=== PATIENT | female | born 1990 | race Caucasian/White ===

== ENCOUNTER 2018-11-30 10:41 | Emergency (ER) | payer SELFPAY ==
[2018-11-30 10:42] VITALS: BP 108/78; PULSE 84; RESP 16; TEMP 36.8; O2SAT 100; BMI 26.6
[2018-11-30] MEDS: Ketorolac 30 MG/ML Syringe IV (11:14)
[2018-11-30] MEDS: Ondansetron 4 MG/2 ML Vial IV (11:14)
[2018-11-30] MEDS: 0.9% Normal Saline 1,000 ML 1000 ML IV (11:14)
[2018-11-30 11:22] LABS: Absolute Lymphocyte Count 1.67 X10^3/uL (0.83-4.51); Absolute Neutrophil Count 5.5 X10^3/uL (2.0-7.7); Basophil# 0.06 X10^3/uL; Basophil% 0.7 % (0-1); Eosinophil# 0.12 X10^3/uL; Eosinophils% 1.4 % (0-5); Hematocrit 40.3 % (37-47); Hemoglobin 13.3 g/dL (12.0-15.0); Lymphocyte # 1.67 X10^3/ul (4.0); Mean Corpuscular Hgb 27.8 pg (27.0-32.0); Mean Corpuscular Volume 84.1 fL (81-99); Monocyte# 1.02 X10^3/uL; Monocyte% 12.2 % (0-10); NRBC Flagged by Analyzer 0 % (0-5); Neutrophil # 5.45 X10^3/uL (2.7-7.7); Neutrophil % 65.5 % (47-70); Platelet Count 187 K/mm3 (150-450); RBC Distribution Width CV 13.2 % (11.6-14.6); Red Blood Count 4.79 M/mm3 (4.2-5.4); White Blood Count 8.3 K/mm3 (4.4-11.0)
[2018-11-30 11:33] LABS: ALB/GLOB Ratio 0.8 RATIO (0.9-2.4); AST(SGOT) 23 U/L (15-37); Alanine Aminotransfer ALT/SGPT 62 U/L (13-56); Albumin, Serum 3.5 g/dL (3.2-5.0); Alkaline Phosphatase 117 U/L (45-117); Anion Gap 6 (5-15); BUN 8 mg/dL (7-18); BUN/Creat Ratio 12.4 RATIO (10-20); Calcium,Total 9.3 mg/dL (8.5-10.1); Chloride 106 mmol/L (98-107); Creatinine, Serum 0.65 mg/dL (0.55-1.02); EST Glomerular Filtration Rate 115 mL/min (>60); Est Glom Filt Rate - Afr Amer 139 mL/min (>60); Estimated Creatinine Clearance 114.91 ml/min; Globulin 4.3 g/dL (2.2-4.2); Glucose 90 mg/dL (74-106); Lipase 80 U/L (73-393); Potassium 3.7 mmol/L (3.5-5.1); Protein, Total 7.8 g/dL (6.4-8.2); Sodium Level 138 mmol/L (136-145)
[2018-11-30 11:59] LABS: Mucous, Urine 0 SEEN /hpf (<or=2+)
[2018-11-30 12:01] LABS: Color, Urine Yellow (Yellow); Glucose, Dipstick Normal (Normal); Ketone-Dipstick Negative (Negative); Leukocyte Esterase-Dipstick 500 /ul (Negative); Nitrite-Dipstick Positive (Negative); Occult Blood-Urine 50 /ul (Negative); Protein-Dipstick 30 mg/dl (Negative); Urine Bilirubin Dipstick Negative (Negative); Urine Clarity Sl. Cloudy (Clear); Urine Urobilinogen Normal (Normal)
[2018-11-30 12:04] LABS: Internal QC Validated? YES +Cl - CLEAR BKGD; Pregnancy, Urine Negative Negative
[2018-11-30 12:10] LABS: Bacteria 1+ /hpf (None Seen); Red Blood Cells-Urine 0-5 SEEN /hpf (0-5); Squamous Epithelial Cells - UA 0-5 SEEN /hpf (5-10); White Blood Cells 25-50 SEEN /hpf (0-5)
--- NOTE | 2018-11-30 12:21 | ED.VISSUMM ---
- ER Visit Summary Date of Service: 11/30/18 Chief Complaint: Flank pain History of Present Illness: The patient is a 28 F with left flank pain for 3 days. Associated with fever, sweats, urinary frequency. History of similar symptoms with kidney infection. Physical Examination: Left flank tender to palpation. Otherwise exam unremarkable. Afebrile and vitals normal. Test Results: CBC normal. CMP showed an ALT of 62. Lipase normal. negative. Urinalysis shows signs of infection without bleeding. Culture pending. Emergency Department Course and Treatment: Patient has signs, symptoms, exam findings, and test results consistent with pyelonephritis. Will treat with Keflex. Cultures pending. Patient was advised that outpatient treatment can fail. She should return with any complications right away. Treatment Plan: Keflex Disposition: Discharge Impression: 1. Left acute pyelonephritis This note was generated with [employer] dictation software. It may contain incorrect words, spelling, and punctuation that were not noted in review of the chart prior to signing ED Disposition - Plan for ED Patient: Referrals: Care Physician,No Primary [Primary Care Provider] -
--- NOTE | 2018-11-30 12:23 | ED.DEP ---
ED Disposition - Plan for ED Patient: Instructions: PYELONEPHRITIS, Female (Adult) Prescriptions: Cephalexin [Keflex] 500 mg PO Q6 #56 cap Prescription Printed Ondansetron [Zofran Odt] 4 mg PO Q8H PRN PRN #10 tab PRN Reason: Nausea Prescription Printed Referrals: Monica Tong [NON-STAFF] -
[2018-11-30 12:38] VITALS: BP 120/74; PULSE 78; RESP 16; O2SAT 99
[2018-11-30] MEDS: Cephalexin 250 MG Capsule 500 MG PO (12:38)
== END 2018-11-30 12:40 | disposition home or self-care (01) ==
LOC: ED 11:27
PROVIDERS: Emergency Provider Emergency Medicine
DX: N10 Acute pyelonephritis (principal)
CPT/HCPCS: 80053; 81001; 81025; 83690; 85025; 87077; 87086; 87088; 87186; 96361; 96374; 96375; 99284; J7030; J2405

== ENCOUNTER 2019-03-17 10:35 | Emergency (ER) | payer SELFPAY ==
[2019-03-17 10:36] VITALS: BP 131/85; PULSE 87; RESP 16; TEMP 36.9; O2SAT 98; BMI 28.3
[2019-03-17 10:42] VITALS: BP 131/85; PULSE 87; RESP 16; TEMP 36.9; O2SAT 98
--- NOTE | 2019-03-17 10:57 | ED.DCSUM_ITS ---
- ER Visit Summary Date of Service: 03/17/19 Chief Complaint: Right lower jaw dental pain and swelling. History of Present Illness: The patient is a 28 F past medical history of gastritis and upper dentures. Currently patient has no dentist. She said for about a week she has had discomfort in her right lower jaw and swelling. No fever. No chills. No trouble swallowing or breathing. She has used an antibiotic she had at home which she believes was cephalexin without any results. Physical Examination: Young female no acute distress vital signs are stable afebrile. H EENT exam she is always swelling her right lower jaw. Tenderness. She has a cavity on her right lower premolar. There is gingival swelling. But no drainable abscess at this time. There is no trismus. Upper dentition her dentures. She also has a cavity on her left lower premolar. There is no swelling to the gums on the left or the jaw. No trouble breathing or swallowing. Neck nontender no lymphadenopathy. Lungs clear to auscultation. Heart regular rhythm no murmur. Abdomen is soft and nontender normal bowel sounds no peritoneal signs. Patient moving all 4 extremities. Neurologically she is awake and alert. Test Results: None Emergency Department Course and Treatment: Patient has a dental infection. To be started on Pen-Vee K 500 4 times daily for 10 days. She needs to follow-up with a dentist. Treatment Plan: Tylenol and/or Motrin for pain. Pen-Vee K 500 4 times daily for 10 days. She be placed on Prilosec for her gastritis. Follow-up with the [facility] clinic. Disposition: Discharge Impression: Dental pain secondary to dental caries with dental abscess This note was generated with [employer] dictation software. It may contain incorrect words, spelling, and punctuation that were not noted in review of the chart prior to signing ED Disposition - Plan for ED Patient: Referrals: Care Physician,No Primary [Primary Care Provider] -
--- NOTE | 2019-03-17 11:00 | ED.DEP ---
ED Disposition - Plan for ED Patient: Disposition: Home or Assisted Living Instructions: Dental Cavity, Dental Abscess Prescriptions: Penicillin Vk [Pen-Vee K , V-Cillin K] 500 mg PO 4X/DAY #40 tab Prescription Printed Omeprazole [Prilosec] 20 mg PO DAILY #30 cap Prescription Printed Referrals: Monica Tong [NON-STAFF] - 1 Week Additional Instructions: Ice to jaw decrease pain. Tylenol and Motrin for pain and swelling. Pen-Vee K 4 times a day for 10 days. Follow-up with the [facility] clinic or a dentist of your choice.
[2019-03-17] MEDS: Penicillin Vk 250 MG Tablet 500 MG PO (11:10)
[2019-03-17 11:12] VITALS: RESP 16
--- NOTE | 2019-03-17 11:13 | ED.RN ---
REVIEWED D/C INSTRUCTIONS, FOLLOW UP CARE, PRESCRIPTIONS, AND S/S THAT WOULD WARRANT A RETURN TO THE ED WITH PT. PT VERBALIZED AN UNDERSTANDING AND DENIES FURTHER QUESTIONS FOR THIS RN. PT SKIN P/W/D, RESP EVEN AND UNLABORED, PT A&O X 3, NO DISTRESS NOTED. PT AMBULATED OUT OF ED, GAIT STEADY.
== END 2019-03-17 11:17 | disposition home or self-care (01) ==
LOC: ED 11:17
PROVIDERS: Emergency Provider Emergency Medicine
DX: K04.7 Periapical abscess without sinus (principal); K02.9 Dental caries, unspecified; Z87.19 Personal history of other diseases of the digestive system; Z72.0 Tobacco use
CPT/HCPCS: 99283

== ENCOUNTER 2020-08-15 07:09 | Outpatient (RCR) | payer SELFPAY | END 2020-08-20 23:59 | LOC: EMPH 07:09 | PROVIDERS: Visit Provider Family Medicine Geriatric Medicine | DX: Z03.818 Encounter for observation for suspected exposure to other biological agents ruled out (principal) | CPT/HCPCS: 87426 ==

== ENCOUNTER 2020-09-12 12:58 | Outpatient (RCR) | payer SELFPAY | END 2020-09-19 23:59 | LOC: EMPH 12:58 | PROVIDERS: Visit Provider Family Medicine Geriatric Medicine | DX: Z03.818 Encounter for observation for suspected exposure to other biological agents ruled out (principal) | CPT/HCPCS: 87426 ==

== ENCOUNTER 2020-10-19 12:14 | Outpatient (RCR) | payer SELFPAY | END 2020-10-20 23:59 | LOC: EMPH 12:14 | PROVIDERS: Referring Provider Family Medicine Geriatric Medicine; Visit Provider Family Medicine Geriatric Medicine | DX: Z03.818 Encounter for observation for suspected exposure to other biological agents ruled out (principal) | CPT/HCPCS: 87426 ==

== ENCOUNTER 2020-10-26 15:06 | Outpatient (RCR) | payer SELFPAY | END 2020-11-20 23:59 | LOC: EMPH 15:06 | PROVIDERS: Referring Provider Family Medicine Geriatric Medicine; Visit Provider Family Medicine Geriatric Medicine | DX: Z03.818 Encounter for observation for suspected exposure to other biological agents ruled out (principal) | CPT/HCPCS: 87426 ==

== ENCOUNTER 2021-02-11 09:31 | Outpatient (RCR) | payer OTHER, SELFPAY ==
[2020-11-21 00:35] VITALS: BMI 28.3
== END 2021-02-19 23:59 ==
LOC: EMPH 09:31
PROVIDERS: Referring Provider Family Medicine Geriatric Medicine; Visit Provider Family Medicine Geriatric Medicine
DX: Z03.818 Encounter for observation for suspected exposure to other biological agents ruled out (principal)
CPT/HCPCS: 87426

== ENCOUNTER 2021-03-11 09:49 | Outpatient (RCR) | payer OTHER, SELFPAY ==
[2021-02-20 00:04] VITALS: BMI 28.3
== END 2021-03-22 23:59 ==
LOC: EMPH 09:49
PROVIDERS: Referring Provider Family Medicine Geriatric Medicine; Visit Provider Family Medicine Geriatric Medicine
DX: Z03.818 Encounter for observation for suspected exposure to other biological agents ruled out (principal)
CPT/HCPCS: 87426; 87635; U0003

== ENCOUNTER 2021-04-08 12:25 | Outpatient (RCR) | payer OTHER, SELFPAY ==
[2021-03-23 00:09] VITALS: BMI 28.3
== END 2021-04-22 23:59 ==
LOC: EMPH 12:25
PROVIDERS: Referring Provider Family Medicine Geriatric Medicine; Visit Provider Family Medicine Geriatric Medicine
DX: U07.1 COVID-19 (principal); Z03.818 Encounter for observation for suspected exposure to other biological agents ruled out
CPT/HCPCS: 87426

== ENCOUNTER 2021-04-13 12:25 | Outpatient (CLI) | payer OTHER, SELFPAY ==
[2021-04-13 12:36] VITALS: BP 127/86; PULSE 90; RESP 16; TEMP 36.6; O2SAT 100; BMI 31.4
[2021-04-13] MEDS: 0.9% Saline Lock 10 ML Syringe IV (12:48)
[2021-04-13 13:15] VITALS: BP 127/86; PULSE 68; RESP 16; TEMP 36.7; O2SAT 100
[2021-04-13 14:06] VITALS: BP 110/76; PULSE 74; RESP 16; TEMP 36.6; O2SAT 100
== END 2021-04-13 23:59 | disposition home or self-care (01) ==
LOC: MS3OUT 12:25 → MS3 12:26
PROVIDERS: Referring Provider Nurse Practitioner Adult Health; Visit Provider Nurse Practitioner Adult Health
DX: Z23 Encounter for immunization (principal); U07.1 COVID-19
CPT/HCPCS: J7050; M0245; Q0245; A4216

== ENCOUNTER → 2022-03-19 | Outpatient (CLI) | payer OTHER, SELFPAY ==
[2022-03-19 12:22] LABS: HIV - WCH Non-Reactive (Nonreactive); Hepatitis C Antibody Non-Reactive (Nonreactive); Syphilis Antibodies Non-reactive
[2022-03-20 16:36] LABS: HSV 1 IgG < 0.91 index (0.00-0.90); HSV 2 IgG < 0.91 index (0.00-0.90)
[2022-03-21 06:08] LABS: Chlamydia By Nucleic Acid AMP Negative (Negative)
[2022-03-21 17:05] LABS: Gonococcus By Nucleic Acid AMP Negative (Negative)
== END | disposition home or self-care (01) ==
PROVIDERS: PCP Internal Medicine; Referring Provider Nurse Practitioner Women's Health; Visit Provider Nurse Practitioner Women's Health
DX: Z20.2 Contact with and (suspected) exposure to infections with a predominantly sexual mode of transmission (principal)
CPT/HCPCS: 36415; 86695; 86696; 86703; 86780; 86803; 87491; 87591; 87624; 88175; G0145

== ENCOUNTER → 2023-02-19 | Outpatient (CLI) | payer OTHER, SELFPAY ==
[2023-02-19 10:25] LABS: Mucous, Urine 0 SEEN /hpf (<or=2+); White Blood Cells 0 SEEN /hpf (0-5)
[2023-02-19 10:28] LABS: Color, Urine Yellow (Yellow); Glucose, Dipstick Normal (Normal); Ketone-Dipstick Negative (Negative); Leukocyte Esterase-Dipstick Negative /ul (Negative); Nitrite-Dipstick Negative (Negative); Occult Blood-Urine 25 /ul (Negative); Protein-Dipstick Negative (Negative); Urine Bilirubin Dipstick Negative (Negative); Urine Clarity Sl. Cloudy (Clear); Urine Urobilinogen Normal (Normal)
[2023-02-19 10:49] LABS: Red Blood Cells-Urine 0-5 SEEN /hpf (0-5); Squamous Epithelial Cells - UA 10-25 SEEN /hpf (5-10)
[2023-02-19 10:50] LABS: Bacteria RARE /hpf (None Seen)
== END | disposition home or self-care (01) ==
LOC: LABSPEC 10:08
PROVIDERS: PCP Internal Medicine; Referring Provider Physician Assistant Surgical; Visit Provider Physician Assistant Surgical
DX: R30.0 Dysuria (principal)
CPT/HCPCS: 81001; 87077; 87086; 87088; 87186

== ENCOUNTER → 2023-09-21 | Outpatient (CLI) | payer OTHER, SELFPAY ==
[2023-09-27 11:07] LABS: HPV APTIMA, High Risk Negative (Negative)
== END | disposition home or self-care (01) ==
LOC: LABSPEC 16:23
PROVIDERS: PCP Internal Medicine; Referring Provider Nurse Practitioner Women's Health; Visit Provider Nurse Practitioner Women's Health
DX: Z12.4 Encounter for screening for malignant neoplasm of cervix (principal)
CPT/HCPCS: 87624; 88175; G0145

== ENCOUNTER → 2024-01-06 | Outpatient (CLI) | payer OTHER, SELFPAY | END | disposition home or self-care (01) | LOC: VSLAB 01-07 11:16 | PROVIDERS: PCP Nurse Practitioner Family; Visit Provider Nurse Practitioner Family | DX: Z00.00 Encounter for general adult medical examination without abnormal findings (principal); E56.9 Vitamin deficiency, unspecified | CPT/HCPCS: 82306; 82607; 84443 ==

== ENCOUNTER 2024-01-10 11:09 | Emergency (ER) | payer OTHER, SELFPAY ==
[2024-01-10 11:10] VITALS: BP 144/100; PULSE 95; RESP 22; TEMP 36.3; O2SAT 100; BMI 33.9
--- NOTE | 2024-01-10 12:41 | MRI_ITS ---
STUDY: MRI LUMBAR SPINE WITHOUT CONTRAST REASON FOR EXAM: Female, 33 years old. RLE weakness, numbness, back pain TECHNIQUE: Standardized fat and water weighted pulse sequences were obtained in the sagittal and axial planes. COMPARISON: None FINDINGS: T11-T12 and T12-L1 (sagittal only).: Normal endplates. Normal disc height, hydration and morphology. Normal central canal and bilateral intervertebral neural foramina. Normal lumbar lordosis. There is no substantial scoliosis. Normal conus medullaris that terminates at the upper L1 vertebral body level. L1-2: Normal endplates. Normal disc height, hydration and morphology. Normal bilateral facet joints. Normal central canal and bilateral lateral recesses. Normal bilateral intervertebral neural foramina. L2-3: Normal endplates. Normal disc height, hydration and morphology. Normal facet joints. Prominent dorsal epidural lipomatosis. Mild central canal stenosis with an AP canal diameter of 9 mm. Normal bilateral lateral recesses. Normal bilateral intervertebral neuroforamina. L3-4: Normal endplates. Normal disc height, hydration and morphology. Normal facet joints. Prominent dorsal epidural lipomatosis. Moderate central canal stenosis with an AP canal diameter of 8 mm. Normal bilateral lateral recesses. Normal bilateral intervertebral neuroforamina. L4-5: Normal endplates. Normal disc height. Mild loss of disc hydration. Minimal ventral extradural defect is posterior bulging annulus. Normal facet joints. Mild dorsal epidural lipomatosis. Moderate central canal stenosis with an AP canal diameter of 8 mm. Normal bilateral lateral recesses. Normal bilateral intervertebral neuroforamina. L5-S1: Normal endplates. Mild disc space height narrowing. Prominent ventral extradural defect is eccentric to the right. This is causing mild posterior displacement of the right S1 nerve root sleeve. No significant facet arthropathy. Moderate central canal stenosis with an AP canal diameter of 7 mm. Mild stenosis of the right lateral recess. Normal left lateral recess. Normal bilateral intervertebral neuroforamina. Normal visualized sacral ala. Normal visualized paraspinous soft tissue structures. MRI/Spine Lumbar (Routine) IMPRESSION: 1. Prominent L5-S1 disc protrusion, eccentric to the right with suspicious mild posterior displacement of the right S1 nerve root sleeve. Moderate central canal stenosis with an AP canal diameter 7 mm secondary to developmentally short pedicles and prominent dorsal epidural lipomatosis. 2. Moderate central canal stenosis at L3-L4 and L4-L5 disc space levels due to prominent dorsal epidural lipomatosis and developmentally short pedicles. They have identical AP canal diameter of 8 mm. 3. Mild central canal stenosis at L2-L3 disc space level with an AP canal diameter of 9 mm secondary to developmental short pedicles and prominent dorsal epidural lipomatosis. Electronically Signed: Mynor Serna MD at 15:33 EDT ,
--- NOTE | 2024-01-10 12:46 | ED.VIS.BACK ---
HPI History of Present Illness Chief Complaint: Back Narrative Narrative: Chief complaint and HPI: 33-year-old female presents for evaluation of back pain. Patient states a week ago she developed sudden lower back pain that has progressed into right lower extremity weakness and numbness. She states that she has fallen almost multiple times secondary to the weakness. She denies any urinary retention or incontinence that she knows of. Denies any bowel incontinence or constipation. Patient denies any illicit drug use. She denies any trauma or falls. Denies any fever, chills, URI symptoms, abdominal pain, nausea, vomiting, dysuria, hematuria. Review of systems: See HPI Medications: As listed on the chart Allergies: As listed on the chart PFSH: Per chart Vital signs: As listed on the chart. Reviewed. Physical exam: Gen: A&O x3, crying in the room secondary to pain Head: Normocephalic, atraumatic Eyes: No sclera icterus, conjunctiva clear ENT: Moist mucous membranes Neck: Trachea midline, No JVD CV: RRR, no murmurs, no peripheral edema Resp: Lungs CTA BL, no w/r/c GI: Abd soft, non-distended, non-tender, no r/r/g Musc: Limited range of motion secondary to back pain, midline spinal tenderness of the lower lumbar spine-no signs of trauma or infection, strength in the right lower extremity is plus 4 out of 5 compared to the left lower extremity which is plus 5 out of 5, no saddle paresthesia, rectal tone intact Skin: Warm, dry Neuro: Alert, oriented, grossly intact, sensation intact but endorses numbness in the right lower extremity Psych: Cooperative, appropriate mood and affect [facility] Medical History Hyperglycemia Dermatitis Hives Chronic headaches Home Medications ?Medication ?Instructions ?Recorded ?Last Taken ?Type medroxyprogesterone 150 mg/mL 150 mg IM Q12W #1 mL 09/21/23 Unknown Rx intramuscular suspension (Depo-Provera) hydrocodone-acetaminophen 5-325mg 1 tab PO Q6H PRN PRN Pain 2 days 01/10/24 Unknown Rx 5mg-325mg #8 TABLETS prednisone 20 mg tablet 40 mg (2 x 20 mg) PO DAILY 7 days 01/10/24 Unknown Rx #14 tabs Allergy/AdvReac Type Severity Reaction Status Date / Time No Known Allergies Allergy Verified 11/27/23 17:13 Family History Mother Diabetes Father Diabetes Social History household members: family housing: house current occupational status: employed 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 sexually active: Yes Smoking Status: Former smoker alcohol intake: never substance use type: does not use what type of physical activity do you participate in: walking frequency: 5-6 times per week seatbelt use: always do you feel safe at home: Yes EXAM Physical Exam Const Vital Signs: 01/10/24 11:10 01/10/24 15:50 Temperature 97.4 F L Temperature Source Temporal Pulse Rate 95 85 Respiratory Rate 22 H 18 Blood Pressure 144/100 H Blood Pressure Mean 114 Pulse Ox 100 99 Oxygen Delivery Method Room Air Room Air MDM MDM MDM Narrative Medical decision making narrative: 33-year-old female presents for evaluation of back pain. Patient endorses sudden and progressively worsening midline lower back pain with extremity weakness and numbness. See physical exam findings. Differential diagnosis includes but is not limited to cord compression, disc herniation, early cauda equina. Given these concerns, MRI lumbar spine ordered. Dilaudid, Zofran ordered for symptoms. Basic labs ordered. CBC and BMP unremarkable. Postvoid residual was obtained and negative for retention. MRI of the lumbar spine shows a prominent L5-S1 disc protrusion, eccentric to the right with suspicious mild posterior displacing the right S1 nerve root sleeve. Moderate central canal stenosis. She has moderate central canal stenosis at L3-L4 and L4-L5 disc space. She has mild central canal stenosis at L 2/L3 disc space. Given these findings, Dr. Reynoso with spine orthopedics was consulted and patient was discussed. He suspects patient's symptoms are mostly secondary to her L5-S1 disc protrusion. Okay with discharge home. Follow-up outpatient. Recommend steroids. Patient was updated of all the results and the plan for discharge home. Her pain is improved. Solu-Medrol ordered however patient's IV was already removed therefore we will give 60 mg prednisone. Patient will be discharged home on 7-day course of prednisone. Follow-up with Dr. Reynoso. She was given a work note. Return precautions were explained. She confirmed understanding. Impression: 1. L5-S1 disc protrusion, eccentric to the right with suspicious mild posterior displacement of the right S1 nerve root sleeve with moderate central canal stenosis 2. Moderate central canal stenosis at L3-L4 and L4-L5 disc space 3. Mild central canal stenosis at L2/L3 disc space Lab Data Labs: Laboratory Results - last 24 hr 01/10/24 13:00 WBC 7.5 RBC 4.98 Hgb 14.6 Hct 44.8 MCV 90.0 MCH 29.3 MCHC 32.6 RDW Std Deviation 43.7 RDW Coeff of Bj 13.2 Plt Count 260 MPV 11.4 Immature Gran % (Auto) 0.400 Neut % (Auto) 58.5 Lymph % (Auto) 29.6 Citrus % (Auto) 6.0 Eos % (Auto) 3.9 Baso % (Auto) 1.6 H Absolute Neuts (auto) 4.4 Absolute Lymphs (auto) 2.21 Nucleated RBC % 0 Sodium 139 Potassium 4.5 Chloride 110 H Carbon Dioxide 21.0 Anion Gap 8 BUN 9 Creatinine 0.81 Estim Creat Clear Calc 110.02 Est GFR (MDRD) Af Amer 103 Est GFR (MDRD) Non-Af 85 BUN/Creatinine Ratio 11.1 Glucose 87 Calcium 9.8 Radiography Diagnostic Testing: Clinical Impression(s) from Imaging Studies Lumbar Spine MRI 01/10/24 12:41 IMPRESSION: 1. Prominent L5-S1 disc protrusion, eccentric to the right with suspicious mild posterior displacement of the right S1 nerve root sleeve. Moderate central canal stenosis with an AP canal diameter 7 mm secondary to developmentally short pedicles and prominent dorsal epidural lipomatosis. 2. Moderate central canal stenosis at L3-L4 and L4-L5 disc space levels due to prominent dorsal epidural lipomatosis and developmentally short pedicles. They have identical AP canal diameter of 8 mm. 3. Mild central canal stenosis at L2-L3 disc space level with an AP canal diameter of 9 mm secondary to developmental short pedicles and prominent dorsal epidural lipomatosis. Electronically Signed: Mynor Serna MD at 15:33 EDT , Discharge Plan Triage Chief Complaint: Back ED Provider: Daniel Barajas Dx/Rx/DC Orders Clinical Impression: Herniation of intervertebral disc of lumbar spine Instructions: ED Herniated Intervertebral Disk Prescriptions: New prednisone 20 mg tablet 40 mg PO DAILY 7 Days Qty: 14 0RF hydrocodone-acetaminophen 5-325 mg tablet 1 tab PO Q6H PRN PRN (Reason: Pain) 2 Days Qty: 8 0RF No Action medroxyprogesterone [Depo-Provera] 150 mg/mL suspension 150 mg IM Q12W Qty: 1 3RF Stand Alone Forms: ED Work / School Excuse Primary Care Provider: Ayad Foster Referrals: Santiago Dunn MD [Med Staff - Active Staff] - Ayad Foster, [employer] [Primary Care Provider] - 3-5 Days Activity Restrictions/Additional Instructions: Call the orthopedic physician tomorrow to schedule an appointment to be seen in follow-up. Start your prednisone tomorrow. Print Language: Serbian Disposition Disposition: Home, Self Care Discharge Date/Time: 01/10/24 17:10
--- NOTE | 2024-01-10 12:49 | ED.RN ---
BLADDER SCANNED FOR 263ML PRE-VOID. VOIDED. POST VOID RESIDUAL=0ML
[2024-01-10] MEDS: HYDROmorphone 0.5 MG/0.5 ML SYRINGE IV (13:08)
[2024-01-10] MEDS: Ondansetron 4 MG/2 ML Vial IV (13:08)
[2024-01-10 13:28] LABS: Absolute Lymphocyte Count 2.21 X10^3/uL (0.83-4.51); Absolute Neutrophil Count 4.4 X10^3/uL (2.0-7.7); Basophil# 0.12 X10^3/uL; Basophil% 1.6 % (0-1); Eosinophil# 0.29 X10^3/uL; Eosinophils% 3.9 % (0-5); Hematocrit 44.8 % (37-47); Hemoglobin 14.6 g/dL (12.0-15.0); Lymphocyte # 2.21 X10^3/ul (0.83-4.51); Lymphocyte % 29.6 % (19-41); Mean Corp Hgb Conc 32.6 g/dL (32-36); Mean Corpuscular Hgb 29.3 pg (27.0-32.0); Mean Platelet Vol. 11.4 fl (6.2-12.0); Monocyte# 0.45 X10^3/uL; NRBC Flagged by Analyzer 0 % (0-5); Neutrophil # 4.37 X10^3/uL (2.7-7.7); Neutrophil % 58.5 % (47-70); Platelet Count 260 K/mm3 (150-450); RBC Distribution Width CV 13.2 % (11.6-14.6); RBC Distribution Width SD 43.7 fl (35.1-43.9); Red Blood Count 4.98 M/mm3 (4.2-5.4); White Blood Count 7.5 K/mm3 (4.4-11.0)
[2024-01-10 13:51] LABS: Anion Gap 8 (5-15); BUN 9 mg/dL (7-18); BUN/Creat Ratio 11.1 RATIO (10-20); Calcium,Total 9.8 mg/dL (8.5-10.1); Chloride 110 mmol/L (98-107); Creatinine, Serum 0.81 mg/dL (0.55-1.02); EST Glomerular Filtration Rate 85 mL/min (>60); Est Glom Filt Rate - Afr Amer 103 mL/min (>60); Estimated Creatinine Clearance 110.02 ml/min; Glucose 87 mg/dL (74-106); Potassium 4.5 mmol/L (3.5-5.1); Sodium Level 139 mmol/L (136-145)
[2024-01-10 15:50] VITALS: PULSE 85; RESP 18; O2SAT 99
[2024-01-10] MEDS: predniSONE 20 MG Tablet 60 MG PO (17:08)
== END 2024-01-10 17:10 | disposition home or self-care (01) ==
PROVIDERS: Emergency Provider Surgery; PCP Nurse Practitioner Family; Visit Provider Surgery
DX: M51.26 Other intervertebral disc displacement, lumbar region (principal); M48.061 Spinal stenosis, lumbar region without neurogenic claudication; Z87.891 Personal history of nicotine dependence
CPT/HCPCS: 72148; 80048; 85025; 96374; 96375; 99282; A4216; J2405

== ENCOUNTER → 2024-01-21 | Outpatient (CLI) | payer OTHER, SELFPAY ==
--- NOTE | 2024-01-21 15:34 | RAD_ITS ---
EXAM: XR LUMBOSACRAL SPINE, 4 OR 5 VIEWS CLINICAL INDICATION: low back pain -- upright AP, LAT, flex/ext TECHNIQUE: Frontal, lateral, and lateral flexion and extension views of the lumbar spine. COMPARISON: No relevant prior studies available. FINDINGS: VERTEBRAE: Unremarkable. Preserved vertebral body height. No fracture. No spondylolisthesis. Preservation of the normal lumbar lordosis. No significant facet arthropathy. DISC SPACES: Mild degenerative disc disease L4-L5 and L5-S1. GASTROINTESTINAL TRACT: Unremarkable as visualized. Included bowel gas pattern is non-obstructive. RAD/L/S Spine Min 4 Views IMPRESSION: 1. Mild degenerative disc disease L4-L5 and L5-S1. 2. No subluxation with flexion and extension. Electronically Signed: Lonny Duncan MD at 23:48 EDT ,
== END | disposition home or self-care (01) ==
PROVIDERS: PCP Nurse Practitioner Family; Referring Provider Orthopaedic Surgery Orthopaedic Surgery of the Spine; Visit Provider Orthopaedic Surgery Orthopaedic Surgery of the Spine
DX: M54.50 Low back pain, unspecified (principal)
CPT/HCPCS: 72110

== ENCOUNTER 2024-02-04 05:29 | Day surgery (SDC) | payer OTHER, SELFPAY ==
--- NOTE | 2024-01-29 09:02 | EKG12_ITS ---
Test Reason : PREOP Blood Pressure : */* mmHG Vent. Rate : 69 BPM Atrial Rate : 69 BPM P-R Int : 168 ms QRS Dur : 82 ms QT Int : 386 ms P-R-T Axes : 77 80 44 degrees QTcB Int : 413 ms Normal sinus rhythm Normal ECG Confirmed by LUPE FRANCIS ([id number]), assignment desk editor STEVE VELAZQUEZ ([id number]) on 01/29/2024 11:51:15 AM Referred By: Santiago Dunn Confirmed By: LUPE FRANCIS
[2024-01-29 10:28] LABS: HIV - WCH Non-Reactive (Nonreactive); Hepatitis B Surface Antibody Reactive; Hepatitis C Antibody Non-Reactive (Nonreactive)
[2024-01-30 05:07] LABS: Hepatitis A AB, Total Negative (Negative)
[2024-02-04] VITALS (12 sets, daily range): BP systolic 99–125; BP diastolic 61–88; PULSE 66–85; RESP 12–18; TEMP 35.9–37; O2SAT 98–100; BMI 33.3
[2024-02-04 05:47] LABS: Internal QC Validated? YES +Cl - CLEAR BKGD; Pregnancy, Urine Negative Negative
[2024-02-04] MEDS: Acetaminophen 500 MG Tablet 1000 MG PO (06:08)
[2024-02-04] MEDS: Lactated Ringers 1,000 ML 15 ML IV ×2 (06:12→10:08)
[2024-02-04] MEDS: Magnesium 1 GM over 15 mins IV (06:23)
[2024-02-04 06:39] LABS: Bedside Glucose 116 mg/dL (74-106)
--- NOTE | 2024-02-04 06:43 | PRE.ANES_ITS ---
ASA Classification* ASA Classification ASA Classification: 2 Assessment & Plan Anesthesia* Anesthesia Assessment Anesthesia Assessment: Discussed sedation and/or anesthesia options, risks, benefits, and alternatives with patient/parents/legal guardian/POA. Questions invited. The patient/parents/legal guardian/POA seems to understand and agrees to proceed with anesthesia plan. Reviewed the physical assessment, medical history, allergy history and patient home medications list prior to surgery/procedure/anesthetic and documented any changes. Performed airway and anesthesia risk assessments. Anesthesia Type Anesthesia Type: General Anesthesia Focused Assessment* Temperature: 98.0 F Pulse Rate: 84 Blood Pressure: 103/80 Respiratory Rate: 18 Pulse Ox: 99 Airway Assessment Mouth opens: >3 cm Mallampati Score: II Focused Labs Anesthesia Preop lab: CBC WBC 7.5 K/mm3 (4.4-11.0) 01/10/24 13:00 RBC 4.98 M/mm3 (4.2-5.4) 01/10/24 13:00 Hgb 14.6 g/dL (12.0-15.0) 01/10/24 13:00 Hct 44.8 % (37-47) 01/10/24 13:00 Plt Count 260 K/mm3 (150-450) 01/10/24 13:00 CHEMISTRY Potassium 4.5 mmol/L (3.5-5.1) 01/10/24 13:00 Sodium 139 mmol/L (136-145) 01/10/24 13:00 Magnesium 2.0 mg/dL (1.6-2.6) 01/29/24 08:46 Phosphorus 3.5 mg/dL (2.5-4.9) 01/06/24 06:46 BUN 9 mg/dL (7-18) 01/10/24 13:00 Creatinine 0.81 mg/dL (0.55-1.02) 01/10/24 13:00 Glucose 87 mg/dL (74-106) 01/10/24 13:00 POC Glucose 116 mg/dL (74-106) H 02/04/24 05:58 TSH 3.670 uIU/mL (0.358-3.740) 01/06/24 06:46 COAG Urine Test Negative Negative 02/04/24 05:38 Pre-Assessment Diagnosis/Proposed Procedure Planned Operative Procedure(s): RIGHT MICRODISCECTOMY L5-S1 Anesthesia History 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 When Was Last Pacemaker Check QUESTION #4 FULL TEXT: You/Your Family Experience fever (hyperthermia) with Anesthesia Last Oral Intake Last Oral intake: Last Oral Intake NPO since 03:00 02/04/24 06:14 Meds taken in AM with sips of No 02/04/24 06:14 water? Meds patient instructed to take am of surgery PONV PONV - b2b sales executive: PONV - b2b sales executive Female Yes 01/28/24 11:31 HX of Motion Sickness Yes 01/28/24 11:31 HX of N/V After Surgery No 01/28/24 11:31 Non-Smoker Yes 01/28/24 11:31 Duration of Surgery greater Yes 01/28/24 11:31 than 60 minutes Number of Risk Factors 4 01/28/24 11:31 PONV Score Severe Risk 01/28/24 11:31 Height & Weight Height & Weight: Anesthesia: Height & Weight Height 5 ft 5 in 02/04/24 06:14 Weight: 91 kg 02/04/24 06:14 Body Mass Index (BMI) 33.3 02/04/24 06:14 Respiratory Assessment Respiratory Assessment - b2b sales executive: Respiratory Tract Infection Hx - b2b sales executive Hx Respiratory Tract Infection No 01/28/24 11:31 STOP Sleep Apnea STOP Sleep Apnea - b2b sales executive: STOP Sleep Apnea - b2b sales executive Hx Hypertension No 01/28/24 11:31 Hx Sleep Apnea No 01/28/24 11:31 CPAP BIPAP Do you snore loudly (louder No 01/28/24 11:31 than talking or can be heard Do you often feel tired/ No 01/28/24 11:31 fatigued/ sleepy during daytime? Has anyone observed you stop No 01/28/24 11:31 breathing during sleep? STOP Results Negative 01/28/24 11:31 QUESTION #5 FULL TEXT : Do you snore loudly (louder than talking or can be heard through closed doors)? Tobacco Use History Tobacco Use History - b2b sales executive: Tobacco Use History - b2b sales executive Tobacco Use Smoking Status Former smoker 01/28/24 11:31 Hx Tobacco Use No 01/28/24 11:31 Years Smoking Packs Smoked per Day Smoking Cessation Date was Yes - quit smoking within 15 01/28/24 11:31 within the last 15 years years Hx Smoking Cessation Date 03/23/21 01/28/24 11:31 Hx Smoking Cessation Counseling Hematologic Medial History Hematologic Hx - b2b sales executive: Hematologic Medical Hx - smoke eater Hx of Blood Transfusion No 01/28/24 11:31 Hx of Transfusion in last 3 No 01/28/24 11:31 Months Date of Last Transfusion (if within last 3 months) Ever experience any problems No 01/28/24 11:31 with transfusion(s)? Specify any problems Hx of Preganancy in last 3 No 01/28/24 11:31 Months Nurse Filling Out Transfusion DSCHRIBER 01/28/24 11:31 & Questions: Date: 01/28/24 01/28/24 11:31 Time: 11:33 01/28/24 11:31 Patient unable to answer at this time (ie. confused, unrespo /Reproduction History /Reproductive History - b2b sales executive: /Reproductive Hx- b2b sales executive Hx Now No 01/28/24 11:31 Gestational Age (in weeks): EDC: Hx Hx Para Hx Section SAB No 01/28/24 11:31 Active Medications Active Medications: Current Medications Generic Name Dose Route Start Last Admin Trade Name Freq PRN Reason Stop Dose Admin Acetaminophen 1,000 mg 02/04/24 07:30 02/04/24 06:08 Acetaminophen 500 Mg Tablet PO 02/04/24 07:31 1,000 mg X1 ONE Administration Cefazolin Sodium 2 gm/ N/A 20 mls @ 400 mls/hr 02/04/24 07:30 IV 02/04/24 07:32 PREOP ONE Tranexamic Acid 1,000 mg/ 110 mls @ 660 mls/hr 02/04/24 07:30 Sodium Chloride IV 02/04/24 07:39 X1 ONE Tranexamic Acid 1,000 mg/ 110 mls @ 660 mls/hr 02/04/24 08:30 Sodium Chloride IV 02/04/24 08:39 X1 ONE Magnesium Sulfate 1 gm/ 102 mls @ 408 mls/hr 02/04/24 07:30 02/04/24 06:23 Dextrose IV 02/04/24 07:44 408 mls/hr X1 ONE Administration Lactated Ringer's 1,000 mls @ 15 mls/hr 02/04/24 06:15 02/04/24 06:12 IV 02/09/24 19:34 15 mls/hr .Q48H MICKEY Administration Protocol Insulin Human Lispro 1 - 6 unit 02/04/24 07:30 Insulin Lispro 100 Unit/Ml Insuln.Pen SC Q4H PRN PRN BG>/= 180, SEE PROTOCOL Protocol PFSH Medical History Wears dentures History of steroid therapy Back pain Migraine headache History of ulceration Asthma Shortness of breath on exertion Leg cramps Former smoker History of pain when walking Hyperglycemia Dermatitis Hives Chronic headaches Home Medications ?Medication ?Instructions ?Recorded ?Last Taken ?Type medroxyprogesterone 150 mg/mL 150 mg IM Q12W #1 mL 09/21/23 Unknown Rx intramuscular suspension (Depo-Provera) dextroamphetamine-amphetamine ER 1 cap PO QAM 01/21/24 02/02/24 History 10 mg 24hr capsule,extend release meloxicam 15 mg tablet 15 mg PO DAILY 01/28/24 Unknown History acetaminophen 325 mg capsule 650 mg PO Q6H PRN pain 02/04/24 02/03/24 History ibuprofen 200 mg tablet (Advil) 200 mg PO Q6H PRN pain 02/04/24 02/03/24 History Allergy/AdvReac Type Severity Reaction Status Date / Time No Known Allergies Allergy Verified 01/29/24 09:29 Family History Mother Diabetes Father Diabetes Other Arthritis Cancer Surgical History No history of previous surgery Social History household members: family housing: house current occupational status: employed current occupation: [employer]- [employer]/ [employer] sexually active: Yes Smoking Status: Former smoker alcohol intake: never substance use type: does not use what type of physical activity do you participate in: walking frequency: 5-6 times per week seatbelt use: always do you feel safe at home: Yes Review of Systems (Anesthesia) ROS Narrative System reviewed and no additional complaints, except as documented.
--- NOTE | 2024-02-04 07:28 | PCM.HP.BLA ---
History and Physical MR#: [id number] Acct: [id number] Name: FELA CHRISTENSEN Rep #: [id number] : 1990 Provider: Dr. Santiago Dunn MD Age/Sex: 33/F Location: [facility] [place] Status: Signed Intake Vital Signs 01/09/2411:10 Height 5 ft 5 in Weight: 204 lb BMI 33.9 BP 144/100 H Respiration 22 H Pulse 95 Temp 97.4 F L Temp Source Temporal Pulse Oximetry (%) 100 Intake Visit Reasons: lumbar spine Allergies No Known Allergies Allergy (Verified 01/28/24 09:40) Medications ?Medication ?Instructions ?Recorded ?Confirmed ?Type medroxyprogesterone 150 mg/mL 150 mg IM Q12W #1 mL 09/21/23 01/28/24 Rx intramuscular suspension (Depo-Provera) dextroamphetamine-amphetamine ER 1 cap PO QAM 01/21/24 01/28/24 History 10 mg 24hr capsule,extend release PFSH Medical History Hyperglycemia Dermatitis Hives Chronic headaches Family History Mother DiabetesFather DiabetesOther Arthritis Cancer Social History household members: family housing: house current occupational status: employed 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 Santiago Dunn MD 01/28/24926. Part of today?s visit was documented by Sara MATOS, acting as scribe. FELA CHRISTENSEN is a 33 year old F here today for preop, lumbar spine, dos 02/04/24. HPI from 01/21/24: FELA CHRISTENSEN is a 33 year old F here today for Lumbar Pain.Patient states it her lower part of back, that goes into her right buttock area. Patient states her back pain started 3 months ago with pain going down her right leg. At that time she was able to drive. She states that she would struggle to lift her right leg. Patient states she was curling her daughters hair on 01/06 and that is when her back really start bothering her. Patient states after she was done she was in tremendous pain and she was dragging her right leg. Patient did go to the ER on 01/09. Patient states it hurts to put any weight on her right leg. Pain is in her right buttock. Patient does have numbness and tingling that goes down her lateral right leg to her little toes. No left leg pain. Says that when she drives her foot goes numb and weak. Patient has never had injection in her back or any recent PT. Patient was taking Hydrocodone from the ER doctor but she is out of that medication. Patient was prescribed Prednisone and she feels like that was helping her but now the pain has returned. Says that she isn't able to stand to shower or do any cleaning at home. Ortho Exam General General: Yes no acute distress Neurologic: Yes alert and Yes oriented x3 Spine SPINE TESTING CERVICAL THORACIC LUMBAR Musculoskeletal Strength 0=absent - 5=normal Details: Neurological exam of the lower extremities shows 5x5 power, except for right gastrosoleus which is 4+. Limited knee extension of the right side due to pain. Normal sensations across all dermatomes. No midline tenderness. Mild right paraspinal tenderness. Passive straight leg raise positive on right. Patient unable to stand straight due to pain. Antalgic gait. Coding Level of Care Code Off vis,est,level 4 Diagnoses Lumbar disc herniation M51.26 Time Spent (min) 35 Assessment and Plan Assessment and Plan (1) Lumbar disc herniation: Status: Acute Plan Again reviewed MRI from 01/10/24 which shows a L5-S1 right paracentral disc herniation. Xrays shows mild degenerative disc disease L4-L5 and L5-S1. No instability on flexion/extension views. Patient is here today for preop appointment for a L5-S1 discectomy. Reviewed the benefits and risks of surgery. Risks of surgery include bleeding, infection, hematoma formation, pneumonia, DVT, pulmonary embolism, atelectasis, gait abnormality, persistent pain, nerve injuries, persistent weakness and numbness, foot drop, chance for future surgeries. Patient understands and agrees to proceed with surgery. Explained in detail the procedure of lumbar microdiscectomy. Discussed post surgery restrictions such as no bending, lifting, or twisting. Answered all questions that she had today in preparation for surgery. Explained the possibility of continued axial back pain from continued disc degeneration at both L4-5 and L5-S1 levels in the future that may require other additional treatment. Consent was signed. Patient is in agreement.
--- NOTE | 2024-02-04 07:45 | RAD_ITS ---
EXAM: XR SPINE, 1 VIEW CLINICAL INDICATION: LUMBAR DISCECTOMY TECHNIQUE: Single view of the spine. COMPARISON: No relevant prior studies available. FINDINGS: VERTEBRAE: Unremarkable. Preserved vertebral body height. No fracture. Preservation of the normal spine curvature. No significant facet arthropathy. DISC SPACES: Unremarkable. Disc spaces are maintained. SOFT TISSUES: Unremarkable. TUBES, LINES AND DEVICES: Intraoperative lateral digital spot radiograph of the lower lumbar spine showing needle localizer device behind the central canal at the L5-S1 disc space level. RAD/Spine 1 View Any Level IMPRESSION: 1. Needle localizer device behind the central canal at the L5-S1 disc space level. 2. Total fluoroscopy time 3.4 seconds. Total radiation dose of 1.79 mGy. Electronically Signed: Mynor Serna MD at 13:02 EST ,
[2024-02-04] MEDS: Cefazolin 2 GM in Syringe IV (07:54)
[2024-02-04] MEDS: TXA 1000mg in NS100 100ml (IVPB at Incision) 660 MG IV (08:08)
[2024-02-04] MEDS: TXA 1000mg in NS100 100ml (IVPB at Closure) 660 MG IV (09:17)
[2024-02-04] MEDS: Dexamethasone IV Preserv Free 10 MG/ML VIAL (09:21)
[2024-02-04] MEDS: Ropivacaine 0.5% 30 ML Vial (09:37)
--- NOTE | 2024-02-04 09:37 | OP.PCM_ITS ---
Operative Report (Standard) Operative Information Surgery/Procedure Performed: L5-S1 right microdiscectomy Surgeon: Santiago Dunn Date of Procedure: 02/04/24 Procedure Start Time: 08:18 Procedure Stop Time: 09:45 Pre-Operative Diagnosis: L5-S1 right lumbar disc herniation Post-Operative Diagnosis: Same Select all DRAINS/GRAFTS/IMPLANTS that apply: None Type of Anesthesia: General Estimated Blood Loss: 20 cc Specimen collected: No Description of surgery: Preoperative diagnosis: L5-S1 right paracentral disc herniation Postoperative diagnosis: L5-S1 right paracentral disc herniation Name of procedure: L5-S1 right sided laminotomy, microdiscectomy CPT 79316 Attending Surgeon: Dr. Santiago Dunn Estimated blood loss: 20 mL Anesthesia: General Indications: Patient is a 33-year-old lady who presented with low back pain and severe right lower extremity radiation. MRI revealed L5-S1 Right paracentral disc herniation. All options of treatment were discussed which included continued nonoperative treatment measures like rest physical therapy, injections. After prolonged nonsurgical treatment, patient requested surgical intervention for microdiscectomy. All risks and benefits associated with the procedure were explained to the patient. The risks include but are not limited to infection, bleeding, injury to nerves and vessels, persistent paresthesia, incidental dural tear, recurrent disc herniation, spinal instability and need for fusion or other procedures in future, persistent pain, persistent weakness and numbness, etc. Procedure: The patient was identified in the preoperative holding suite using Unique patient identifiers. Skin was marked, consent was reviewed, and all questions were answered. The patient was then brought back to the operative room. A surgical timeout was performed to make sure correct procedure was being done on the correct patient and all operative room staff were on the same page. General endotracheal anesthesia was then given to the patient. The patient was then turned prone onto a Aaron table over a Ck frame. The back was prepped and draped in usual fashion. Preoperative antibiotic was given. A final timeout was then again done just before starting the procedure. An 18-gauge spinal needle was inserted and was confirmed on C-arm lateral view to be at the L5-S1 level. An incision was then carried out approximately 1 inch length just to the right of the midline. Bovie was utilized to dissect through the subcutaneous tissue up to the fascia. The fascia was bovied at the spinous process. Subperiosteal dissection was carried out along the right side of the spinous process and the lamina. This dissection was stopped at the level of the medial capsule of the facet joint. Lateral edge of the pars was also identified. A [place] was then placed under the inferior edge of the lamina and a C-arm lateral view was repeated. The level was confirmed to be the L5-S1 interspace. A [place] retractor of appropriate depth was then placed to provide retraction throughout the remainder of the surgery. A molly was then utilized to make a laminotomy window medial to the facet and lateral to the spinous process. Care was taken to preserve at least 1 cm of bone from the lateral border of the pars. Once the bone was thinned out a [place] rongeur was utilized to complete the laminotomy. The ligamentum flavum was then removed with the help of pituitaries and Kerr[place] rongeurs. Ligamentum flavum in the lateral recess was then removed with Kerrison rongeur. The dura and traversing nerve root were then identified with the help of a [place] #4. A nerve root retractor was then utilized to retract the dura and the traversing nerve root medially. A cruciate incision over the annulus was performed. Disc fragments were then teased out with the help of a nerve hook and Tiffanie. The nerve hook and Tiffanie were then used to probe inferiorly and superiorly and medially to tease out more disc fragments. Further loose disc fragments from the disc space were also removed with help of pituitary. Irrigation of the disc space through an Angiocath was performed to remove any further loose disc fragments. once adequate decompression was obtained by removal of all loose disc fragments including the ones that were extruded, irrigation was done with normal saline. 10 mg of preservative-free dexamethasone was then sprinkled over the traversing nerve root. A small piece of Gelfoam was then placed over the bony window. The Mesa retractor was then removed. And closure was done in layers, 0 Vicryl for the deep fascia, 2-0 Vicryl for subcutaneous tissue, and 4-0 Monocryl for the skin. The deep fascial layer was closed in a watertight fashion with interrupted 0 Vicryl. The skin closure was augmented with Dermabond. 2 x 2 gauze was then placed over the wound covered with Tegaderm. The patient was then turned supine onto a hospital bed. The patient was extubated and taken to PACU in stable condition. The patient tolerated the procedure well and no complications occurred. Estimated blood loss for the entire surgery was 20 mL. No instrumentation was utilized in this case. No dural tear occurred in this case. I was present for the entirety of the case and performed the surgery myself. Surgical Findings: See operative note Hearing Aid Technician boxing and pressing supervisor: Yes Door Worker: Berta Peterson Tasks completed by surgical first assistant: Closing, Removing tissue and Retracting Complications Complications: No Procedures Musculoskeletal [id number]: Other Procedure See Report
--- NOTE | 2024-02-04 09:55 | PCM.POST.ANE ---
Anesthesia: Postop Eval I Current Vital Signs Temperature: 97.7 F Pulse Rate: 69 Blood Pressure: 111/63 Respiratory Rate: 16 Pulse Ox: 98 Oxygen Delivery Method: Room Air Assessment Airway patent: Yes Spontaneous unlabored respirations: Yes Mental status: Awake and Calm nausea: No Vomiting: No Anesthesia Complication: No Fluid Hydration Crystalloid volume administer (ml): 800 Total IV fluid infused: 800 Progress Note Anesthesia document: Postop Eval 1 completed: Yes
[2024-02-04] MEDS: Scopolamine 1mg/72hr Patch 1 PATCH TD (11:57)
--- NOTE | 2024-02-04 16:25 | POSTOPAN2_ITS ---
Anesthesia Postop Eval I Sum Postop Eval Completion status Anesthesia document: Postop Eval 1 completed: Yes Anesthesia Postop Eval I Summary Anesthesia Postop Eval I Summary: Anesthesia Postop Eval I: Assessment Summary Airway patent Yes 02/04/24 09:56 [email or web address] Spontaneous unlabored Yes 02/04/24 09:56 DOCK [email or web address] respirations Mental status Awake,Calm 02/04/24 09:56 DOCK [email or web address] nausea No 02/04/24 09:56 DOCK [email or web address].[email or web address] Vomiting No 02/04/24 09:56 DOCK [email or web address].[email or web address] Anesthesia Postop Eval I: Fluid Summary Crystalloid volume administer 800 02/04/24 09:56 DOCK [email or web address] (ml) Colloids volume administered ( ml) Blood Product volume administered (ml) Total IV fluid infused 800 02/04/24 09:56 DOCK [email or web address].[email or web address] Anesthesia Postop Eval I: Summary Notes Anesthesia Complication No 02/04/24 09:56 DOCK [email or web address].[email or web address] Anesthesia Complication Comment: Post-operative progress note Anesthesia: Postop Eval II Evaluation Mental status: Awake and Calm Pain Level: 1 nausea: No Vomiting: No Complications Anesthesia Complication: No
--- NOTE | 2024-02-04 16:25 | PCM.POSTANE2 ---
Anesthesia Postop Eval I Sum Postop Eval Completion status Anesthesia document: Postop Eval 1 completed: Yes Anesthesia Postop Eval I Summary Anesthesia Postop Eval I Summary: Anesthesia Postop Eval I: Assessment Summary Airway patent Yes 02/04/24 09:56 FASTENER [email or web address] Spontaneous unlabored Yes 02/04/24 09:56 FASTENER TECHNOLOGIST.GDOTT respirations Mental status Awake,Calm 02/04/24 09:56 FASTENER [email or web address].GDOTT nausea No 02/04/24 09:56 FASTENER TECHNOLOGIST.GDOTT Vomiting No 02/04/24 09:56 FASTENER [email or web address].GDOTT Anesthesia Postop Eval I: Fluid Summary Crystalloid volume administer 800 02/04/24 09:56 FASTENER [email or web address].GDOTT (ml) Colloids volume administered ( ml) Blood Product volume administered (ml) Total IV fluid infused 800 02/04/24 09:56 FASTENER [email or web address].GDOTT Anesthesia Postop Eval I: Summary Notes Anesthesia Complication No 02/04/24 09:56 FASTENER [email or web address].GDOTT Anesthesia Complication Comment: Post-operative progress note Anesthesia: Postop Eval II Evaluation Mental status: Awake and Calm Pain Level: 1 nausea: No Vomiting: No Complications Anesthesia Complication: No
== END 2024-02-04 12:29 | disposition home or self-care (01) ==
LOC: SDC 05:29 → AC 05:30
PROVIDERS: Anesthesiology; PCP Nurse Practitioner Family; Referring Provider Orthopaedic Surgery Orthopaedic Surgery of the Spine; Visit Provider Orthopaedic Surgery Orthopaedic Surgery of the Spine
PROC: (CPT 63030; principal; 2024-02-04 07:00)
DX: M51.27 Other intervertebral disc displacement, lumbosacral region (principal); Z87.891 Personal history of nicotine dependence
CPT/HCPCS: 63030; 00630; 72020; 76000; 81025; 82962; 83735; 86703; 86706; 86708; 86803; 86850; 86900; 86901; 87081; 93005; J7120; J2405; J3475